=== PATIENT | female | born 1960 | race African-American/Black ===

== ENCOUNTER 2022-02-05 07:03 | Inpatient (IN) | payer OTHER ==
[~2022-02-05] VITALS: Ht 167.6 cm; Wt 78.5 kg
[2022-02-05] MEDS ORDERED: CALC-959 PO (07:08)
[2022-02-05] MEDS ORDERED: OXYB5TAB20 PO (07:08)
[2022-02-05] MEDS ORDERED: OXCA300T57 PO (07:08)
[2022-02-05] MEDS ORDERED: TRIA1CAP87 PO (07:08)
[2022-02-05] MEDS ORDERED: FLUO20CA36 PO (07:08)
[2022-02-05] MEDS ORDERED: LORazepam 2 MG/ML VIAL IM ONE (07:30)
[2022-02-05 07:37] LABS: BASOPHILS % (AUTO) 0.7 % (0.0-2.0); HEMATOCRIT 38.8 % (36-46); HEMOGLOBIN 12.8 g/dL (12.0-16.0); LYMPHOCYTES # (AUTO) 1.9 K/uL (1.0-4.8); LYMPHOCYTES % (AUTO) 22.7 % (22.0-44.0); MEAN CORPUSCULAR HEMOGLOBIN 22.5 pg (26.0-34.0); MEAN CORPUSCULAR VOLUME 68 fL (80-100); MONOCYTES # (AUTO) 0.9 K/uL (0.1-1.0); MONOCYTES % (AUTO) 10.5 % (2.0-9.0); NEUTROPHILS # (AUTO) 5.6 K/uL (1.8-7.7); NEUTROPHILS % (AUTO) 65.1 % (40.0-70.0); PLATELET COUNT (AUTO) 191 K/uL (150-450); RED BLOOD CELL COUNT(AUTO) 5.71 MIL/uL (4.00-5.20); RED CELL DISTRIBUTION WIDTH 14.9 % (11.5-14.5)
[2022-02-05 07:54] LABS: ALANINE AMINOTRANSFERASE 23 U/L (12-78); ALBUMIN 4.4 g/dL (3.4-5.0); ALKALINE PHOSPHATASE 84 U/L (46-116); ANION GAP 15 mmol/L (8-16); ASPARTATE AMINOTRANSFERASE 19 U/L (15-37); BILIRUBIN,TOTAL 0.5 mg/dL (0.1-1.0); CARBON DIOXIDE 21 mmol/L (22-29); CHLORIDE 87 mmol/L (98-107); CREATININE 0.82 mg/dL (0.60-1.30); GLUCOSE,RANDOM 132 mg/dL (70-110); POTASSIUM 3.2 mmol/L (3.5-5.1); TOTAL PROTEIN, SERUM 7.8 g/dL (6.4-8.2); UREA NITROGEN, BLOOD 7 mg/dL (7-18)
[2022-02-05 08:00] LABS: GLOMERULAR FILTR. RATE CALC > 60 mL/min (>60); SODIUM SERUM 123 mmol/L (136-145)
[2022-02-05] MEDS ORDERED: ONDANSETRON HCL 4 MG/2 ML VIAL IVP PRN (08:30)
[2022-02-05] MEDS ORDERED: MAGNESIUM HYDROXIDE SUSPENSION 30 ML UDCUP PO PRN (08:30)
[2022-02-05] MEDS ORDERED: ACETAMINOPHEN 325 MG TABLET PO PRN (08:30)
[2022-02-05] MEDS: OXcarbazepine 300 MG TABLET PO SCH ×2 (08:41→20:04)
[2022-02-05] MEDS: FAMOTIDINE 20 MG TABLET PO SCH (08:41)
[2022-02-05] MEDS ORDERED: DIPHENOXYLATE/ATROP 2.5-0.025 MG TABLET PO ONE (09:00)
[2022-02-05 09:39] LABS: COVID AG,FIA SOURCE NASOPHARYNGEAL
[2022-02-05 11:00] VITALS: BP 112/75
[2022-02-05] MEDS ORDERED: CALC-462 PO (11:49)
[2022-02-05] MEDS ORDERED: TRIA1TAB93 PO (11:49)
[2022-02-05 14:20] VITALS: BP 121/76
[2022-02-05 14:43] VITALS: BP 121/76
[2022-02-05] MEDS: HEPARIN SODIUM,PORCINE 5,000 UNITS/ML VIAL SQ SCH (17:02)
[2022-02-05 18:13] VITALS: BP 119/69
[2022-02-05 19:34] VITALS: BP 106/63
[2022-02-05] MEDS: ZOLPIDEM TARTRATE 5 MG TABLET PO PRN (21:15)
[2022-02-05 23:59] VITALS: BP 110/60
[2022-02-06 04:25] VITALS: BP 116/76
[2022-02-06 05:53] LABS: CALCIUM, TOTAL 8.9 mg/dL (8.8-10.5); CARBON DIOXIDE 29 mmol/L (22-29); CHLORIDE 88 mmol/L (98-107); CREATININE 0.74 mg/dL (0.60-1.30); GLUCOSE,RANDOM 105 mg/dL (70-110); POTASSIUM 3.3 mmol/L (3.5-5.1); UREA NITROGEN, BLOOD 6 mg/dL (7-18)
[2022-02-06 06:05] LABS: ANION GAP 8 mmol/L (8-16); GLOMERULAR FILTR. RATE CALC > 60 mL/min (>60); SODIUM SERUM 125 mmol/L (136-145)
[2022-02-06 07:11] VITALS: BP 109/67
[2022-02-06] MEDS: OXcarbazepine 300 MG TABLET PO SCH ×2 (08:22→19:33)
[2022-02-06] MEDS: HEPARIN SODIUM,PORCINE 5,000 UNITS/ML VIAL SQ SCH ×4 (08:23→23:54)
[2022-02-06] MEDS: FAMOTIDINE 20 MG TABLET PO SCH (08:23)
[2022-02-06] MEDS ORDERED: POTASSIUM CHL 10 MEQ/WATER 50 ML IV PRN (09:45)
[2022-02-06] MEDS ORDERED: POTASSIUM CHLORIDE 20 MEQ ER TABLET PO PRN (09:45)
[2022-02-06] MEDS ORDERED: SODIUM CHLORIDE 0.9% 1,000 ML IV ONE (09:45)
[2022-02-06 12:22] VITALS: BP 111/75
[2022-02-06 15:19] VITALS: BP 103/60
[2022-02-06] MEDS: ZOLPIDEM TARTRATE 5 MG TABLET PO PRN (19:33)
[2022-02-06 19:54] VITALS: BP 113/70
[2022-02-07 00:16] VITALS: BP 104/64
[2022-02-07 04:15] VITALS: BP 104/58
[2022-02-07 06:05] LABS: ANION GAP 4 mmol/L (8-16); CALCIUM, TOTAL 8.6 mg/dL (8.8-10.5); CARBON DIOXIDE 28 mmol/L (22-29); CHLORIDE 94 mmol/L (98-107); CREATININE 0.69 mg/dL (0.60-1.30); GLUCOSE,RANDOM 109 mg/dL (70-110); POTASSIUM 4.2 mmol/L (3.5-5.1); SODIUM SERUM 126 mmol/L (136-145); UREA NITROGEN, BLOOD 4 mg/dL (7-18)
[2022-02-07 06:06] LABS: GLOMERULAR FILTR. RATE CALC > 60 mL/min (>60)
[2022-02-07 07:36] VITALS: BP 118/81
[2022-02-07] MEDS: HEPARIN SODIUM,PORCINE 5,000 UNITS/ML VIAL SQ SCH (08:00)
[2022-02-07] MEDS: FAMOTIDINE 20 MG TABLET PO SCH (08:23)
[2022-02-07] MEDS: OXcarbazepine 300 MG TABLET PO SCH (08:23)
[2022-02-07] MEDS ORDERED: FLUoxetine HCL 20 MG CAPSULE PO SCH (09:00)
[2022-02-07] MEDS ORDERED: SODIUM CHLORIDE 1 GM TABLET PO SCH (12:15)
[2022-02-07] MEDS ORDERED: NACL1 PO (13:37)
== END 2022-02-07 15:15 | disposition home or self-care (01) | DRG 426 ==
LOC: EMS 07:05 → 5S 09:24
PROVIDERS: ADMIT Internal Medicine; ATTEND Internal Medicine
DX: E87.1 Hypo-osmolality and hyponatremia (principal); E87.6 Hypokalemia; G40.909 Epilepsy, unspecified, not intractable, without status epilepticus; Z20.822 Contact with and (suspected) exposure to COVID-19; K52.9 Noninfective gastroenteritis and colitis, unspecified; F32.A Depression, unspecified; Z79.899 Other long term (current) drug therapy
CPT/HCPCS: 70450; 80048; 80053; 84132; 84484; 85025; 93005; 97116; 97162; 97530; 99285; G0480; J1644; J2060; J2405; J7030